=== PATIENT | female | born 2000 | race Caucasian/White ===

== ENCOUNTER 2024-10-11 23:26 | Inpatient (IN) | payer OTHER ==
[2024-10-11] MEDS ORDERED: Lidocaine 1% 50 ML MDV INJECT PRN (23:48)
[2024-10-11] MEDS ORDERED: Nalbuphine 10 MG/1 ML Vial IVPUSH PRN (23:48)
[2024-10-11] MEDS ORDERED: Ondansetron 4 MG/2 ML SDV IVPUSH PRN (23:48)
[2024-10-11] MEDS ORDERED: Sodium Chloride 0.9% 10 ML Syringe FLUSH PRN (23:48)
[2024-10-12] MEDS ORDERED: Bupivacaine 0.25% 10 ML SDV ONE
[2024-10-12] MEDS ORDERED: Ropivacaine 0.2% PF 2 MG/ML 20 ML SDV ONE
[2024-10-12 00:14] LABS: BASOPHILS PERCENT AUTO 0.4 % (0.0-1.0); EOSINOPHILS ABSOLUTE AUTO 0.1 K/mm3 (0.0-0.4); EOSINOPHILS PERCENT AUTO 0.5 % (0.0-6.0); HEMATOCRIT 37.6 % (37.0-47.0); HEMOGLOBIN 12.6 gm/dl (12.0-16.0); IMMATURE GRAN ABSOLUTE AUTO 0.05 K/mm3 (0.00-0.05); IMMATURE GRAN PERCENT AUTO 0.5 % (0.0-0.4); LYMPHOCYTES ABSOLUTE AUTO 3.3 K/mm3 (1.0-4.8); LYMPHOCYTES PERCENT AUTO 29.4 % (24.0-44.0); MEAN CORPUSCULAR HEMOGLOBIN 29.4 pg (28.0-32.0); MEAN CORPUSCULAR HGB CONC 33.5 g/dl (32.0-36.0); MEAN CORPUSCULAR VOLUME 87.6 fl (83.0-99.0); MEAN PLATELET VOLUME 10.7 fl (9.4-12.3); MONOCYTES ABSOLUTE AUTO 0.7 K/mm3 (0.0-0.8); NEUTROPHILS PERCENT AUTO 63.2 % (41.0-71.0); PLATELET COUNT,PLT 216 K/mm3 (150-400); RED BLOOD CELL COUNT 4.29 M/mm3 (4.10-5.30); WHITE BLOOD CELL COUNT,WBC 11.05 K/mm3 (3.9-11.3)
[2024-10-12] MEDS: Lactated Ringers 1,000 ML IV SCH (00:15)
[2024-10-12] MEDS ORDERED: diphenhydrAMINE 50 MG/ML SDV IVPUSH PRN (00:28)
[2024-10-12] MEDS ORDERED: ePHEDrine 50 MG/ML SDV IVPUSH PRN (00:28)
[2024-10-12] MEDS ORDERED: ePHEDrine 50 MG/ML SDV IM PRN (00:28)
[2024-10-12] MEDS: Ropivacaine 200 MG in Premix Bag 1 BAG EPIDUR PRN (01:00)
[2024-10-12] MEDS: Oxytocin/0.9 % Sodium Chloride 30 UNIT/500 ML BAG IV SCH (03:05)
[2024-10-12] MEDS ORDERED: Docusate Sodium 100 MG Cap PO PRN (05:15)
[2024-10-12] MEDS ORDERED: Benzocaine/Menthol 20%-0.5% Spray 78 GM Cannister TOP PRN (05:15)
[2024-10-12] MEDS ORDERED: Acetaminophen 325 MG Tab PO PRN (05:15)
[2024-10-12] MEDS ORDERED: Witch Hazel Medicated Pads 40/Jar TOP PRN (05:15)
[2024-10-12] MEDS: Ibuprofen 600 MG Tab PO SCH (05:51)
[2024-10-12] MEDS ORDERED: Sodium Chloride 0.9% 10 ML Syringe FLUSH SCH (09:00)
== END 2024-10-13 12:38 | disposition home or self-care (01) | DRG 807 ==
LOC: JD.OBCHECK 23:26 → JD.OB 23:33 → JD.OBCHECK 10-12 00:29 → JD.OB 10-12 00:54 → OBSVTOIN 10-12 03:02 → JD.OB 10-12 03:02
PROVIDERS: ADMIT Obstetrics & Gynecology; ATTEND Obstetrics & Gynecology
PROC: 10E0XZZ Delivery of Products of Conception, External Approach (ICD-10-PCS; principal; 2024-10-12)
PROC: 3E0R3BZ Introduction of Anesthetic Agent into Spinal Canal, Percutaneous Approach (ICD-10-PCS; 2024-10-12)
PROC: 00HU33Z Insertion of Infusion Device into Spinal Canal, Percutaneous Approach (ICD-10-PCS; 2024-10-12)
DX: O42.02 Full-term premature rupture of membranes, onset of labor within 24 hours of rupture (principal); Z37.0 Single live birth; O69.81X0 Labor and delivery complicated by cord around neck, without compression, not applicable or unspecified; O70.0 First degree perineal laceration during delivery; Z3A.39 39 weeks gestation of pregnancy
CPT/HCPCS: 36415; 51701; 59025; 59409; 85025; 86592; 86850; 86900; 86901; A9270-GY; J0665; J2795; J7120; J7999